=== PATIENT | male | born 1995 | race Two or more races ===

== ENCOUNTER 2020-04-29 12:07 | Emergency (ER) | payer OTHER ==
[~2020-04-29] VITALS: Ht 177.8 cm; Wt 108.9 kg
[2020-04-29 12:18] VITALS: BP 142/79
[2020-04-29] MEDS ORDERED: TETANUS-DIPTH-ACEL PERTUSSIS 0.5ML SYR Tdap IM ONE (13:15)
== END 2020-04-29 14:04 | disposition home or self-care (01) ==
LOC: ER 12:07
DX: S81.832A Puncture wound without foreign body, left lower leg, initial encounter (principal); W45.0XXA Nail entering through skin, initial encounter; Y93.01 Activity, walking, marching and hiking; Y92.89 Other specified places as the place of occurrence of the external cause; Y99.8 Other external cause status
CPT/HCPCS: 90471; 90715